=== PATIENT | male | born 1980 | race African-American/Black ===

== ENCOUNTER 2018-01-19 06:37 | Day surgery (SDC) | payer OTHER ==
[2018-01-19] MEDS ORDERED: Propofol* 10 MG/ML 20 ML BTL IV PUSH ONE (06:40)
[2018-01-19] MEDS ORDERED: Lidocaine 2% PF * 5 ML VIAL ONE (06:41)
[2018-01-19] MEDS ORDERED: Succinylcholine* 20 MG/ML 10 ML VIAL ONE (06:47)
[2018-01-19] MEDS ORDERED: Phenylephrine INJ* 10 MG/ML 1 ML VIAL (10 MG) ONE (06:48)
[2018-01-19] MEDS ORDERED: Sterile Water for Inj* 10 ML ONE (06:49)
[2018-01-19] MEDS ORDERED: ceFAZolin 2 GM PREMIX (*) 2 GM/50 ML BAG IVPB ONE (06:55)
[2018-01-19] MEDS ORDERED: Bupivacaine 0.5% SDV PF* 30ML VIAL ONE (07:29)
[2018-01-19] MEDS ORDERED: Midazolam* 1 MG/ML 2 ML VIAL (2 MG) ONE (07:40)
[2018-01-19] MEDS ORDERED: fentaNYL* 50 MCG/ML 2 ML VIAL (100 MCG VIAL) ONE ×2 (07:40→10:05)
[2018-01-19] MEDS ORDERED: Dexamethasone IV* 4 MG/ML 1 ML (4 MG) ONE (08:19)
[2018-01-19] MEDS ORDERED: Ondansetron INJ* 2 MG/ML VIAL ONE (08:19)
[2018-01-19] MEDS ORDERED: Acetaminophen TAB* 325 MG PO PRN ×2 (08:26→08:33)
[2018-01-19] MEDS ORDERED: DiMENhydriNATE IV* 50 MG/ML VIAL IV PUSH PRN ×2 (08:26→08:33)
[2018-01-19] MEDS ORDERED: Naloxone* 0.4 MG/ML 1 ML VIAL IV PRN ×2 (08:26→08:33)
[2018-01-19] MEDS ORDERED: fentaNYL* 50 MCG/ML 2 ML VIAL (100 MCG VIAL) IV PRN ×2 (08:26→08:33)
[2018-01-19] MEDS ORDERED: Ketorolac INJ* 30 MG/ML 1 ML VIAL ONE (08:46)
[2018-01-19] MEDS ORDERED: Acetaminophen TAB* 325 MG ONE (10:05)
[2018-01-19 10:48] VITALS: BP 132/79
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
[2018-01-19] MEDS ORDERED: Buffered Lidocaine 0.9% SYRIN* 5 ML/SYR SYRINGE INTRADERM ONE (14:44)
== END 2018-01-19 11:06 | disposition home or self-care (01) ==
LOC: OR 06:37
PROVIDERS: ATTEND Orthopaedic Surgery
DX: T84.84XA Pain due to internal orthopedic prosthetic devices, implants and grafts, initial encounter (principal); Y83.1 Surgical operation with implant of artificial internal device as the cause of abnormal reaction of the patient, or of later complication, without mention of misadventure at the time of the procedure; S92.812S Other fracture of left foot, sequela; X58.XXXS Exposure to other specified factors, sequela; I10 Essential (primary) hypertension; K21.9 Gastro-esophageal reflux disease without esophagitis; M51.16 Intervertebral disc disorders with radiculopathy, lumbar region
CPT/HCPCS: 36415; 86703; 86706; 86803; 87340; 87902; A9270-GY; C1713; J0330; J0690; J1100; J1885; J2250; J2405; J2704; J3010

== ENCOUNTER 2018-04-25 09:28 | Day surgery (SDC) | payer OTHER ==
--- NOTE | 2018-04-14 21:03 | HP ---
PREOPERATIVE HISTORY AND PHYSICAL: DATE OF ADMISSION: 04/25/18 - [facility] DATE OF OFFICE VISIT/ENCOUNTER: 04/10/18 ATTENDING SURGEON: Chel Guevara MD * (DICTATED BY ALEJANDRINA MONTEJO) PROCEDURE: Ganglion cyst excision, right wrist. CHIEF COMPLAINT: Cyst, right wrist. HISTORY OF PRESENT ILLNESS: This is a 38-year-old incarcerated male, who complains of a lump on the dorsal aspect of his right wrist that has been present for 20 years. He had it aspirated a few months ago, but it quickly returned. He has pain associated with the cyst and takes ibuprofen on occasion for pain control. He has an increased pain secondary to the cyst when he does push-ups or any sort of weightbearing with his wrist extended. He denies any numbness or tingling. He does not recall any specific injury related to the cyst. He would like to have it surgically excised. PAST MEDICAL HISTORY: 1. Depression/anxiety. 2. Acid reflux. 3. Low back pain. PAST SURGICAL HISTORY: 1. Left foot ORIF and subsequent hardware removal. 2. Surgery on fractured jaw. MEDICATIONS: 1. Abilify 5 mg at bedtime. 2. Ibuprofen 600 mg t.i.d. p.r.n. pain. 3. Remeron 15 mg daily. 4. Prilosec p.r.n. ALLERGIES: No known drug allergies. FAMILY HISTORY: Noncontributory. SOCIAL HISTORY: The patient is incarcerated. He is a current smoker. He smokes a pack a day and has done so for the past 24 years. No current recreational drug use and no current alcohol consumption. REVIEW OF SYSTEMS: Negative for general, cephalic, cardiovascular, respiratory , GI, , other musculoskeletal, integumentary, endocrine, neurologic, and hematologic symptoms. Infectious Disease is negative for MRSA, hepatitis C, and HIV. PHYSICAL EXAMINATION GENERAL: A well-developed, well-nourished 38-year-old male, in no acute distress. VITAL SIGNS: Height 5 feet 11 inches, weight 172 pounds. Pulse rate 63, blood pressure 138/82. HEENT: Normocephalic, atraumatic. Pupils are equal, round, and reactive to light and accommodation. Extraocular movements are intact. Throat is clear. NECK: Supple. No palpable lymph nodes. PULMONARY: Lungs are clear to auscultation bilaterally. No wheezes, rales or rhonchi. CARDIOVASCULAR: Regular rate and rhythm. S1 and S2. No murmurs, rubs or gallops. No edema. ABDOMEN: Positive bowel sounds. Soft, nontender. MUSCULOSKELETAL: On exam of his right wrist, he has a large cystic mass on the dorsal aspect of the radiocarpal joint. It is tender to palpation, firm, subcutaneous, and mobile, clinically consistent with a ganglion cyst. His wrist motion is normal, but he has pain at the extreme of extension. He can make a full fist. Neurovascular function is intact. NEUROLOGICAL: Alert and oriented x3. Cranial nerves II through XII are intact. Sensation is intact to light touch. SKIN: Intact. IMAGING STUDIES: X-rays, AP, lateral, and oblique of the right wrist show very mild ulnar positive variance but no degenerative changes, and a large soft tissue mass on the dorsal aspect of the wrist. IMPRESSION: Right dorsal wrist ganglion. PLAN: The patient is scheduled to undergo a ganglion cyst excision, right wrist with Dr. Guevara on 04/25/18. He will return to the office 10 days postop for followup and suture removal. It has been recommended to his facility that he be provided [id number] ibuprofen and/or Tylenol for postoperative pain management and Ultracet if he would need something stronger. ALEJANDRINA MONTEJO [id number]/[facility] #: [id number] MTDD
[~2018-04-25 09:28] MED LIST: Buffered Lidocaine 0.9% SYRIN* 5 ML/SYR SYRINGE INTRADERM ONE; Famotidine IV* 10 MG/ML 2 ML (20 mg) IV ONE; Famotidine IV* 10 MG/ML 2 ML (20 mg) ONE; Lidocaine 1% INJ* 10 MG/ML 30 ML SDV ONE
[2018-04-25] MEDS ORDERED: DiMENhydriNATE IV* 50 MG/ML VIAL IV PUSH PRN (10:38)
[2018-04-25] MEDS ORDERED: Naloxone* 0.4 MG/ML 1 ML VIAL IV PRN (10:38)
[2018-04-25] MEDS ORDERED: Acetaminophen TAB* 325 MG PO PRN (10:38)
[2018-04-25] MEDS ORDERED: fentaNYL* 50 MCG/ML 2 ML VIAL (100 MCG VIAL) ONE (11:05)
[2018-04-25] MEDS ORDERED: Midazolam* 1 MG/ML 5 ML VIAL (5 MG) ONE (11:05)
[2018-04-25] MEDS ORDERED: Ketorolac INJ* 30 MG/ML 1 ML VIAL ONE (11:37)
[2018-04-25] MEDS ORDERED: Ondansetron INJ* 2 MG/ML VIAL ONE (11:37)
[2018-04-25] MEDS ORDERED: Propofol* 10 MG/ML 20 ML BTL IV PUSH ONE (11:37)
[2018-04-25] MEDS ORDERED: Lidocaine 2% PF * 5 ML VIAL ONE (11:37)
[2018-04-25] MEDS ORDERED: traMADol TAB* 50 MG ONE (12:50)
[2018-04-25 13:00] VITALS: BP 120/84
--- NOTE | 2018-04-26 04:29 | OP ---
DATE OF OPERATION: 04/25/18 [facility] DATE OF : [birth year] SURGEON: Chel Guevara MD SENIOR STOCK PLAN ADMINISTRATOR: ALEJANDRINA Kitchen ANESTHESIA: Local MAC. PRE-OP DIAGNOSIS: Right dorsal wrist ganglion. POST-OP DIAGNOSIS: Right dorsal wrist ganglion. OPERATIVE PROCEDURE: Removal of right wrist ganglion. ESTIMATED BLOOD LOSS: Zero. TOURNIQUET TIME: Approximately 20 minutes. INDICATION FOR PROCEDURE: Rah is a 38-year-old male with a painful mass in the dorsal aspect of his right wrist. He presents for removal. Clinically, it is a ganglion cyst. DESCRIPTION OF PROCEDURE: The patient was brought to the operating room and was given a sedation anesthetic and a local infiltration of 10 cc of 1% plain lidocaine on the dorsal aspect of his right wrist overlying the mass. The skin of his right hand and forearm was prepped and draped in the usual sterile fashion. The hand and forearm were exsanguinated and the tourniquet elevated to 250 mmHg. A transverse incision was made centered over the mass. We dissected bluntly through the subcutaneous tissue. The mass was carefully dissected away from the surrounding tissue and the extensor tendons and the tendons were retracted by the medical clerical assistant, Akosua Hurtado. The mass was traced with its stalk down to the radial carpal joint and removed with a small portion of the joint overlying the scapholunate ligament. The dorsal aspect of the scapholunate was likely cauterized with Bovie as were the edges of the wrist joint capsule. The wound was irrigated and the skin edges were reapproximated with 4-0 nylon suture. The wound was dressed with Xeroform, 4x4 , Webril, and an Isaias wrap. The patient tolerated the procedure well and was brought to the recovery room in good condition. [id number]/[facility] #: [id number] MTDD
== END 2018-04-25 13:00 ==
LOC: OREAST 09:28
PROVIDERS: ATTEND Orthopaedic Surgery
DX: M67.431 Ganglion, right wrist (principal); F41.8 Other specified anxiety disorders; K21.9 Gastro-esophageal reflux disease without esophagitis; Z72.0 Tobacco use; M54.5 Low back pain
CPT/HCPCS: 88304; A9270-GY; J1885; J2250; J2405; J2704; J3010

== ENCOUNTER 2019-06-08 09:54 | Day surgery (SDC) | payer OTHER ==
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
[~2019-06-08 09:54] MED LIST changes: -Buffered Lidocaine 0.9% SYRIN* 5 ML/SYR SYRINGE INTRADERM ONE; +Buffered Lidocaine 1% SYRIN* 1 ML/SYRINGE INTRADERM ONE; -Famotidine IV* 10 MG/ML 2 ML (20 mg) IV ONE; -Famotidine IV* 10 MG/ML 2 ML (20 mg) ONE; +Lactated Ringers 1000 ML Bag* 1,000 ML IV SCH; -Lidocaine 1% INJ* 10 MG/ML 30 ML SDV ONE
[2019-06-08] MEDS ORDERED: ceFAZolin 2 GM in NS PREMIX(*) 2 GM/100 ML BAG IVPB ONE (10:05)
[2019-06-08] MEDS ORDERED: Lidocaine 1% INJ* 10 MG/ML 30 ML SDV ONE (10:33)
[2019-06-08] MEDS ORDERED: Naloxone* 0.4 MG/ML 1 ML VIAL IV PRN (11:43)
[2019-06-08] MEDS ORDERED: Acetaminophen TAB* 325 MG PO PRN (11:43)
[2019-06-08] MEDS ORDERED: DiMENhydriNATE IV* 50 MG/ML VIAL IV PUSH PRN (11:43)
[2019-06-08] MEDS ORDERED: oxyCODONE/Acetamin 5/325 MG* TAB PO PRN (11:43)
[2019-06-08] MEDS ORDERED: oxyCODONE/Acetamin 5/325 MG* TAB ONE (13:14)
[2019-06-08] MEDS ORDERED: Acetaminophen TAB* 325 MG ONE (13:15)
[2019-06-08] MEDS ORDERED: fentaNYL* 50 MCG/ML 2 ML VIAL (100 MCG VIAL) ONE (13:25)
[2019-06-08] MEDS: fentaNYL* 50 MCG/ML 2 ML VIAL (100 MCG VIAL) IV PRN ×2 (13:26→13:34)
[2019-06-08 13:59] VITALS: BP 136/87
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
== END 2019-06-08 14:17 ==
LOC: OREAST 09:54
PROVIDERS: ATTEND Orthopaedic Surgery
DX: S66.11 Strain of flexor muscle, fascia and tendon of other and unspecified finger at wrist and hand level (principal); W10.9XXD Fall (on) (from) unspecified stairs and steps, subsequent encounter; Y92.148 Other place in prison as the place of occurrence of the external cause; F41.8 Other specified anxiety disorders; K21.9 Gastro-esophageal reflux disease without esophagitis; F17.210 Nicotine dependence, cigarettes, uncomplicated; M54.5 Low back pain
CPT/HCPCS: A9270-GY; C1713; J0690; J3010